=== PATIENT | female | born 1980 | race Caucasian/White ===

== ENCOUNTER 2020-10-04 07:13 | Emergency (ER) | payer MEDICAID ==
[~2020-10-04] VITALS: Ht 157.5 cm; Wt 92.8 kg
--- NOTE | 2020-10-04 08:04 | NUR ---
TO [facility] FROM [facility]
[2020-10-04 08:09] LABS: BASOPHILS % (AUTO) 1 % (0-1); EOSINOPHILS % (AUTO) 2 % (1-7); LYMPHOCYTES % (AUTO) 37 % (22-44); MEAN CORPUSCULAR HEMOGLOBIN 33.5 pg (27.0-34.8); MEAN CORPUSCULAR HGB CONC 33.1 g/dL (32.4-35.8); MEAN PLATELET VOLUME 7.2 fL (7.4-10.4); MONOCYTES % (AUTO) 8 % (2-9); NEUTROPHILS % (AUTO) 53 % (42-75); PLATELET COUNT 347 x10^3/uL (130-400); RED BLOOD COUNT 3.76 x10^6/uL (3.82-5.3); RED CELL DISTRIBUTION WIDTH 13.3 % (9.6-15.2)
[2020-10-04 08:10] LABS: MD NO
--- NOTE | 2020-10-04 08:18 | NUR ---
PT PLACED ON O2 FOR LOW RA SPO2 87-88%
--- NOTE | 2020-10-04 08:19 | NUR ---
PT C/O VAGINAL BLEEDING X 2 MONTHS. PT HAS NOT SEEN A ARCHITECT INTERNSHIP DUE TO A RECENT MOVE. PT ALSO C/O ABD CRAMPING, N/V AND DIARRHEA X 1 MONTH. PT HAS COILS IN HER TUBES SO DOES NOT BELIEVE SHE IS . 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
[2020-10-04 10:09] VITALS: BP 112/80
--- NOTE | 2020-10-04 10:13 | NUR ---
PT REC'VD DISCHARGE INSTRUCTIONS AND EDUCATION. PT HAD NO FURTHER QUESTIONS. PT AMBULATED TO DC AREA, STEADY GAIT.
== END 2020-10-04 10:15 | disposition home or self-care (01) ==
LOC: ED 09:10
DX: N93.8 Other specified abnormal uterine and vaginal bleeding (principal); R10.2 Pelvic and perineal pain; F17.210 Nicotine dependence, cigarettes, uncomplicated
CPT/HCPCS: 36415; 76856; 84703; 85025; 99284